=== PATIENT | male | born 1970 | race Caucasian/White ===

== ENCOUNTER 2018-03-23 10:50 | Inpatient (IN) | payer MEDICAID ==
--- NOTE | 2018-03-23 11:09 | EDPHY ---
H & P Stated Complaint: Fell, hit head, lac to left eyebrow. LOC. Source: Patient Exam Limitations: No limitations - Personal History Current Tetanus Diphtheria and Acellular Pertussis (TDAP): Yes - Medical/Surgical History Hx Asthma: No Hx Chronic Respiratory Disease: No Hx Diabetes: No Hx Cardiac Disease: No Hx Renal Disease: No Hx Cirrhosis: No Hx Alcoholism: No Hx HIV/AIDS: No Hx Splenectomy or Spleen Trauma: No Other PMH: htn. traumatic splenectomy - Social History Smoking Status: Current every day smoker Time Seen by Provider: 03/23/18 11:07 HPI/ROS: CHIEF COMPLAINT: Fall from ladder, facial laceration, decreased vision left eye HISTORY OF PRESENT ILLNESS: The patient is brought to the emergency department by a friend. He reportedly was painting a house and fell off a ladder approximately 20 ft in the air. The patient struck his head and sustained a laceration complicated in nature above his left eye. The patient reports decreased vision in his left eye. The patient denies any neck pain. The patient denies chest pain, abdominal pain or back pain. The patient does report drinking alcohol today. Patient does have a prior history of a significant traumatic injury resulting in a pneumothorax, multiple rib fractures and splenectomy. REVIEW OF SYSTEMS: A comprehensive 10 point review of systems is otherwise negative aside from elements mentioned in the history of present illness. (Arun Kramer) - Physical Exam Exam: General Appearance: Alert, alcohol on breath, no acute distress Head: Complex laceration noted over the left eye Eyes: Right pupil reactive, normal consensual response noted in the left pupil. Left pupil is unreactive. The patient reports he has no vision out of his left eye. No obvious hypopyon noted on exam. ENT, Mouth: No hemotympanum, no oral trauma Neck: In cervical collar Respiratory: No chest wall tender, subcutaneous air, lungs clear bilaterally Cardiovascular: Regular rate and rhythm Abdomen: Abdomen is soft and nontender, pelvis stable Skin: No lacerations, No abrasion Back: No midline T/L/S pain Extremities: Nontender, full range of motion Neurological: A&Ox3, normal motor function, normal sensory exam (Arun Kramer) Constitutional: Initial Vital Signs Heart Rate 90 03/23/18 10:55 Respiratory Rate 18 03/23/18 10:55 Blood Pressure 134/93 H 03/23/18 10:55 O2 Sat (%) 96 03/23/18 10:55 O2 Delivery Mode Room Air Allergies/Adverse Reactions: No Known Allergies Allergy (Unverified 01/19/18 13:49) Home Medications: Medication Instructions Recorded Hydrochlorothiazide [HCTZ (*)] 12.5 mg PO DAILY@1500 01/19/18 Ibuprofen [Motrin (*)] 200 - 400 mg PO DAILY PRN 01/19/18 Losartan Potassium [Cozaar 50 mg 50 mg PO BID 01/19/18 (*)] Acetaminophen [Tylenol 325mg (*)] 650 mg PO Q4HRS PRN tab 01/22/18 Amoxicillin/Clavulanate Pot 875 mg PO BID #28 tab 01/22/18 [Augmentin 875 MG TAB (*)] Doxycycline Hyclate [Vibramycin 100 mg PO BID #28 capsule 01/22/18 100 MG (*)] Nicotine [Nicoderm Cq 21 mg (*)] 21 mg TD DAILY patch 01/22/18 Thiamine HCl [Vitamin B-1] 100 mg PO DAILY tab 01/22/18 Medical Decision Making - Diagnostics Imaging Results: Imaging Impressions Cervical Spine CT 03/23/18 11:03 Impression: 1. No acute, displaced cervical spine fracture. 2. If the patient has persistent pain or neurologic deficits, consider cervical spine MRI. These findings were discussed with Mika Kramer in the emergency department at 12: 00 AM on 03/23/2018. Head CT 03/23/18 11:03 Impression: 1. Complex facial fractures involving the left zygomatic arch, orbital roof, left maxillary sinus and ethmoid air cells, as well as pterygoid process of the sphenoid bone extending to the region of the pterygopalatine fossa and optic canal. 2. Small amount left temporal extra-axial hemorrhage and pneumocephalus. 3. Longitudinal fracture of the right temporal bone. These findings were discussed with Mika Kramer in the emergency department at 12: 00 AM on 03/23/2018. Procedures: My involvement the care this patient is solely for procedure. Please see the note of the attending physician for all other aspects of care. PROCEDURE: Laceration repair Consent: Verbal Location: Left eyebrow Length of repair: 6 cm Complexity: Complex Layer involvement: 2 layer Anesthesia: Local. 0.5% Marcaine with epinephrine. 10 mL Irrigation: Extensive Debridement: 1 cm excisional debridement Procedure description: Following good anesthesia, the wound was copiously irrigated. Wound bed was explored with a sterile glove, and there is no foreign body noted. Perform 1 cm excisional debridement of nonviable tissue. Wound borders were approximated well with good hemostasis. Tolerated well without complication. Suture/Staple material: Subcutaneous layer: 5-0 Vicryl, 10 figure-eight sutures. Cutaneous layer: 6-0 Prolene, 9 simple ruptured sutures Wound care: Routine as discussed Suture/Staple removal: 7 Days (Pete Link) ED Course/Re-evaluation: The patient presents to the ED after a fall from ladder which resulted in a facial laceration and vision loss in his left eye. The patient has been drinking alcohol today. However he is neurologically intact aside from vision loss in his left eye. Patient was taken for stat CT scan of the head and cervical spine which demonstrate complex facial fractures but no evidence of an intracranial hemorrhage. The patient also has a temporal bone fracture. Consultation was made with Dr. Chappell from Ophthalmology who evaluated the patient in the emergency department. He appears to have a injury involving his optic nerve. Dr. Chappell recommends IV steroids and a Solu-Medrol Dosepak. The patient has been informed that he may be at a poor outcome given his extensive optic nerve injury. Consultation was made with ENT will see the patient regarding his facial fractures. I consulted with Dr. Darvin Nagy from General surgery who will admit the patient for observation this evening. The patient's facial laceration was repaired by the physician licensed investment sales assistant. I did consult with Dr. Paredes at 1:[address] Chappell will dictated formal consultation on the patient this afternoon. On repeat examination the patient did complain of bilateral wrist pain. The patient did undergo bilateral wrist x-rays which demonstrate no evidence of an obvious fracture by my interpretation. 2:15 p.m.: Patient is transferred to a medical-surgical floor bed for further observation. (Arun Kramer) Differential Diagnosis: Differential diagnosis considered includes intracranial hemorrhage, skull fracture, facial bone fracture, optic nerve injury (Arun Kramre) Critical Care Time: Critical care time exclusive of procedures and exclusive of the PA's time was 35 minutes, performed by myself, Arun Kramer MD. Patient presents to the ED with traumatic blindness from a high mechanism fall. The patient was seen in consultation by Ophthalmology as well as Trauma surgery. The patient will be admitted to the hospital for observation in the setting of his numerous facial bone fractures, alcohol intoxication and fall. (Arun Kramer) - Data Points Laboratory Results: Laboratory Results 03/23/18 11:15 03/23/18 11:15 03/23/18 03/23/18 03/23/18 11:15 11:15 11:15 WBC 8.20 10^3/uL 10^3/uL (3.80-9.50) RBC 4.39 10^6/uL L 10^6/uL (4.40-6.38) Hgb 15.7 g/dL g/dL (13.7-17.5) Hct 42.8 % % (40.0-51.0) MCV 97.5 fL fL (81.5-99.8) MCH 35.8 pg H pg (27.9-34.1) MCHC 36.7 g/dL g/dL (32.4-36.7) RDW 12.5 % % (11.5-15.2) Plt Count 298 10^3/uL 10^3/uL (150-400) MPV 8.8 fL fL (8.7-11.7) Neut % (Auto) 60.9 % % (39.3-74.2) Lymph % (Auto) 27.1 % % (15.0-45.0) [place] % (Auto) 9.8 % % (4.5-13.0) Eos % (Auto) 1.0 % % (0.6-7.6) Baso % (Auto) 1.0 % % (0.3-1.7) Nucleat RBC Rel Count 0.0 % % (0.0-0.2) Absolute Neuts (auto) 5.00 10^3/uL 10^3/uL (1.70-6.50) Absolute Lymphs (auto) 2.22 10^3/uL 10^3/uL (1.00-3.00) Absolute Monos (auto) 0.80 10^3/uL 10^3/uL (0.30-0.80) Absolute Eos (auto) 0.08 10^3/uL 10^3/uL (0.03-0.40) Absolute Basos (auto) 0.08 10^3/uL 10^3/uL (0.02-0.10) Absolute Nucleated RBC 0.00 10^3/uL 10^3/uL (0-0.01) Immature Gran % 0.2 % % (0.0-1.1) Immature Gran # 0.02 10^3/uL 10^3/uL (0.00-0.10) PT 13.1 SEC SEC (12.0-15.0) INR 0.97 (0.83-1.16) APTT 29.7 SEC SEC (23.0-38.0) Sodium 126 mEq/L L mEq/L (135-145) Potassium 4.1 mEq/L mEq/L (3.3-5.0) Chloride 85 mEq/L L mEq/L (97-110) Carbon Dioxide 23 mEq/l mEq/l (22-31) Anion Gap 18 mEq/L H mEq/L (6-14) BUN 6 mg/dL L mg/dL (7-23) Creatinine 0.6 mg/dL L mg/dL (0.7-1.3) Estimated GFR > 60 Glucose 106 mg/dL H mg/dL (70-100) Calcium 9.2 mg/dL mg/dL (8.5-10.4) Ethyl Alcohol 399 mg/dL H mg/dL (0-10) Departure - Departure Disposition: [facility] Inpatient Acute Clinical Impression: Traumatic blindness of left eye, Complex laceration of face, Facial bones, closed fracture, Alcohol intoxication Condition: Fair
[2018-03-23 11:27] LABS: PLATELET COUNT 298 10^3/uL (150-400)
[2018-03-23 11:39] LABS: INR 0.97 (0.83-1.16); PROTIME(PATIENT) 13.1 SEC (12.0-15.0)
[2018-03-23] MEDS ORDERED: FLUORESCEIN SODIUM 1 MG STRIP OP ONE (11:42)
[2018-03-23] MEDS ORDERED: PROPARACAINE 0.5% 15 ML OPHT DROP ONE (11:42)
[2018-03-23] MEDS ORDERED: DIAZEPAM 5 MG TAB PO PRN (13:23)
[2018-03-23] MEDS ORDERED: FLUMAZENIL 0.5 MG/5 ML MDV IVP PRN (13:23)
[2018-03-23] MEDS ORDERED: ACETAMINOPHEN 325 MG TAB PO PRN (13:23)
[2018-03-23] MEDS ORDERED: D5W 1/2 NS W/ 20 KCl/L 1,000 ML IV SCH (13:30)
--- NOTE | 2018-03-23 13:53 | PDGENHP ---
History and Physical - Chief Complaint fall from ladder - History of Present Illness 47yo male arrives to the [facility] ED as a limited trauma after sustaining an approximate 20 foot fall off a ladder. 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 He vaguely remembers falling and losing his balance but not much else. He recalls coming to and a bystander asking him how he felt. He was subsequently transferred here via ambulance. On arrival here and on my examination, he is protectiing his airway, is breathing appropriately and has adequate circulation. He c/o L head pain and eye pain, he is also disoriented as he cannot see anything out of the left eye. Other than the above, he has no complaints and is anxious about the loss of vision. History Information - Allergies/Home Medication List Allergies/Adverse Reactions: No Known Allergies Allergy (Unverified 01/19/18 13:49) Home Medications: Hydrochlorothiazide [HCTZ (*)] 12.5 mg PO DAILY@1500 01/19/18 [Last Taken ] Ibuprofen [Motrin (*)] 200 - 400 mg PO DAILY PRN 01/19/18 [Last Taken Unknown] Losartan Potassium [Cozaar 50 mg (*)] 50 mg PO BID 01/19/18 [Last Taken 01/19/18 ] I have personally reviewed and updated: family history, medical history, social history, surgical history - Past Medical History hypertension Additional medical history: Recent Hx of neck infection in December Tx c abx - Surgical History Additional surgical history: Traumatic splenectomy - Family History Positive for: non-pertinent - Social History Smoking Status: Current every day smoker Tobacco Use: Other (1 PPD) Alcohol Use: Heavy (8-10 beers/night, typically drinks throughout the day as well) Drug Use: None Additional social history: From [place], [place]. Review of Systems Review of Systems: ROS: 10pt was reviewed & negative except for what was stated in HPI & below Physical Exam Physical Exam: Temp Pulse Resp BP Pulse Ox 90 18 134/93 H 96 03/23/18 10:55 03/23/18 10:55 03/23/18 10:55 03/23/18 10:55 Constitutional: no apparent distress, appears nourished, not in pain Eyes: PERRL, anicteric sclera, EOMI, other (Left eye accomodates and has normal EOMI, no vision in L eye. 3cm laceration above L eye. Significant swelling and bruising of L eye as well ) Ears, Nose, Mouth, Throat: moist mucous membranes, hearing normal, ears appear normal, no oral mucosal ulcers Cardiovascular: regular rate and rhythym, no murmur, rub, or gallop, No edema Respiratory: no respiratory distress, no rales or rhonchi, clear to auscultation Gastrointestinal: normoactive bowel sounds, soft, non-tender abdomen, no palpable masses, other (well healed laparotomy scar c/w surgical Hx) Genitourinary: no bladder fullness, no bladder tenderness Skin: warm, normal color, no rashes or abrasions, no fluctuance, no induration, No mottled Musculoskeletal: full muscle strength, no muscle tenderness, normal joint ROM, no joint effusions Neurologic: AAOx3, sensation intact bilaterally, No weakness, No numbness, No facial droop Psychiatric: interacting appropriately, not encephalopathic, thought process linear, anxious Lymph, Heme, Immunologic: no cervical LAD, no supraclavicular LAD Lab Data & Imaging Review 03/23/18 11:15 03/23/18 11:15 WBC 8.20 10^3/uL (3.80-9.50) 03/23/18 11:15 RBC 4.39 10^6/uL (4.40-6.38) L 03/23/18 11:15 Hgb 15.7 g/dL (13.7-17.5) 03/23/18 11:15 Hct 42.8 % (40.0-51.0) 03/23/18 11:15 MCV 97.5 fL (81.5-99.8) 03/23/18 11:15 MCH 35.8 pg (27.9-34.1) H 03/23/18 11:15 MCHC 36.7 g/dL (32.4-36.7) 03/23/18 11:15 RDW 12.5 % (11.5-15.2) 03/23/18 11:15 Plt Count 298 10^3/uL (150-400) 03/23/18 11:15 MPV 8.8 fL (8.7-11.7) 03/23/18 11:15 Neut % (Auto) 60.9 % (39.3-74.2) 03/23/18 11:15 Lymph % (Auto) 27.1 % (15.0-45.0) 03/23/18 11:15 [place] % (Auto) 9.8 % (4.5-13.0) 03/23/18 11:15 Eos % (Auto) 1.0 % (0.6-7.6) 03/23/18 11:15 Baso % (Auto) 1.0 % (0.3-1.7) 03/23/18 11:15 Nucleat RBC Rel Count 0.0 % (0.0-0.2) 03/23/18 11:15 Absolute Neuts (auto) 5.00 10^3/uL (1.70-6.50) 03/23/18 11:15 Absolute Lymphs (auto) 2.22 10^3/uL (1.00-3.00) 03/23/18 11:15 Absolute Monos (auto) 0.80 10^3/uL (0.30-0.80) 03/23/18 11:15 Absolute Eos (auto) 0.08 10^3/uL (0.03-0.40) 03/23/18 11:15 Absolute Basos (auto) 0.08 10^3/uL (0.02-0.10) 03/23/18 11:15 Absolute Nucleated RBC 0.00 10^3/uL (0-0.01) 03/23/18 11:15 Immature Gran % 0.2 % (0.0-1.1) 03/23/18 11:15 Immature Gran # 0.02 10^3/uL (0.00-0.10) 03/23/18 11:15 PT 13.1 SEC (12.0-15.0) 03/23/18 11:15 INR 0.97 (0.83-1.16) 03/23/18 11:15 APTT 29.7 SEC (23.0-38.0) 03/23/18 11:15 Sodium 126 mEq/L (135-145) L 03/23/18 11:15 Potassium 4.1 mEq/L (3.3-5.0) 03/23/18 11:15 Chloride 85 mEq/L (97-110) L 03/23/18 11:15 Carbon Dioxide 23 mEq/l (22-31) 03/23/18 11:15 Anion Gap 18 mEq/L (6-14) H 03/23/18 11:15 BUN 6 mg/dL (7-23) L 03/23/18 11:15 Creatinine 0.6 mg/dL (0.7-1.3) L 03/23/18 11:15 Estimated GFR > 60 03/23/18 11:15 Glucose 106 mg/dL (70-100) H 03/23/18 11:15 Calcium 9.2 mg/dL (8.5-10.4) 03/23/18 11:15 Ethyl Alcohol 399 mg/dL (0-10) H 03/23/18 11:15 Visualized and Interpreted imaging results: Yes Interpretation: Ct Head: Complex fx involving L zygomatic arch, orbital roof, L maxilary sinus and ethmoid air cells, pterygoid process of sphenoid bone entending into pterygopalatine fossa and optic canal. Small amt of pneumocephalus. Longitudincal fx of R temporal bone. CT c-spine: no acute fx Assessment & Plan Assessment: Alcohol intoxication (Acute) Complex laceration of face (Acute) Facial bones, closed fracture (Acute) Traumatic blindness of left eye (Acute) Plan: 47yo M s/p mechanical fall c complex facial fx, L eye blindness, L orbital laceration. - Patient will be admitted to trauma service. - Evaluation from Ophthalmology has taken place in ED. Recs per them were that globe was intact and vision loss likely 2/2 optic nerve swelling. Will start Medrol dose aiden per their recommendations - ENT for facial fx, evaluation pending - CIWA: patient drinks >10 beers/day. Will start Ativan, may need Precedex if progresses. Will watch closely - HTN: resume home meds - Tobacco: path if needed, will hold until he requests - Abx for pneumocephalus
[2018-03-23] MEDS: IBUPROFEN 600 MG TAB PO SCH ×2 (14:28→21:05)
[2018-03-23] MEDS: oxyCODONE IR 5 MG TAB PO PRN ×3 (14:29→19:36)
--- NOTE | 2018-03-23 14:30 | EDV ---
CHIEF COMPLAINT/HPI: Patient is a 47-year-old white male who fell off a ladder while painting, strik ing the left side of his face. Now complains of severe visual loss, left eye with significant lacera tions on forehead and above left brow. PAST OCULAR HISTORY: Patient relates that he previously had good vision in both eyes. PAST MEDICAL HISTORY: Noncontributory. Visual acuity approximately 24/40 with near vision, right ey e. Left eye, no light perception. Attempted to startle patient with sudden movements and attract him to moving objects and light. He was unable to follow moving objects. Did not notice anything that w ould cause him distraction, and denied any ability to see light at all. PHYSICAL EXAMINATION: HEAD: He has a laceration above the left brow and on the left side of his for ehead with significant bruising. EYES: Lids, lacrimal system were all intact without trauma. Conjunctivae, he as a very small subconj unctival hemorrhage at the 5 o'clock position in the left eye. Right eye is clear. Corneas are kavon r. Anterior chamber deep and quiet. Lens are clear. Pupils, patient has normal shape and morpholog y. He has a 4+ relative afferent pupillary defect in the left eye. On undilated fundus exam, cup to discussion 0.3, both eyes. Vessels appear to be intact. Retina is flat. There is no apparent reti nal detachment. Pressures are soft to tactile measurement. Extraocular motility is full. 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 Imaging was obtained whi ch shows multiple facial fractures including into the apex of the orbit and palatine fossa. RECOMMENDATIONS: Case was discussed with attending ER physician, who recommended dosing of Solu-Medr ol and a 2-week course of steroids to try to decrease any swelling around the optic nerve if there is any visual potential, which is highly doubtful. We plan on seeing him as an outpatient in 2 weeks t o reassess his vision. /[id number]/MODL
[2018-03-23] MEDS: HYDROCHLOROTHIAZIDE 12.5 MG CAP PO SCH (14:57)
--- NOTE | 2018-03-23 17:11 | PDMN ---
Medical Necessity Medical necessity: Pt meets IP criteria per & [facility]ICA PG-MTR (Multiple Trauma); est los >2 mn for eval/tx of complex facial fx, L eye blindness & L orbital laceration s/p mechanical fall; admit for further monitoring, Ophthalmology consult w/Medrol dose aiden, ENT consult, IV abx, IVFs, CIWA protocol & therapies ; hx heavy alcohol use; per H&P & order 03/23/18
[2018-03-23] MEDS: AMPICILLIN/SULBACTAM 3 GM in NS 100 ML IV SCH (17:41)
[2018-03-23] MEDS: NICOTINE 21 MG/24 HR PATCH TD SCH (17:41)
[2018-03-23] MEDS: ONDANSETRON 4 MG/2 ML VIAL IVP PRN ×2 (17:44→21:32)
[2018-03-23] MEDS: LOSARTAN POTASSIUM 50 MG TAB PO SCH (21:04)
[2018-03-23] MEDS: BACITRACIN ZINC 14.2 GM OINTTUBE TP SCH (21:05)
[2018-03-23] MEDS: LORazepam 2 MG/ML INJ IVP PRN (22:16)
[2018-03-24] MEDS: AMPICILLIN/SULBACTAM 3 GM in NS 100 ML IV SCH ×4 (00:41→17:40)
[2018-03-24] MEDS: oxyCODONE IR 5 MG TAB PO PRN ×3 (06:29→18:35)
[2018-03-24] MEDS: IBUPROFEN 600 MG TAB PO SCH ×3 (06:29→21:26)
[2018-03-24] MEDS ORDERED: methylPREDNISolone 4 MG TAB PO SCH (07:30)
[2018-03-24] MEDS: ONDANSETRON 4 MG/2 ML VIAL IVP PRN ×2 (08:38→21:44)
[2018-03-24] MEDS ORDERED: BEER 1 EACH EA PO PRN (08:59)
--- NOTE | 2018-03-24 09:14 | TRAUMAPNT ---
Trauma Tertiary Progress Note - Problem/Surgery Performed (1) Tobacco use Assessment/Plan: discussed with patient/Nicoderm patch (21mg) removed as I am concerned it could further compromise intracerebral blood flow patient agrees. If withdrawal symptoms severe would restart at lower dose (7mg) (2) Alcohol intoxication Assessment/Plan: discussed EtOH withdrawal/he is not interested in quitting right now and has had withdrawal symptoms in the past when he has quit will continue CIWA protocol and offer Beer prn (3) Complex laceration of face Assessment/Plan: s/p repair, sutures out 5-7 days (4) Facial bones, closed fracture Assessment/Plan: multiple fractures including left zygomatic arch, left maxillary and sphenoid sinus, left sphenoid bone into pterygopalatine fossa-optic canal, pneumocephalus non-operative management per ENT/opthalmology continue steriods/symptomatic care Qualifiers: Encounter type: initial encounter Facial bone/location: zygomatic arch Laterality: left Qualified Code(s): S02.40FA - Zygomatic fracture, left side, initial encounter for closed fracture (5) Traumatic blindness of left eye Assessment/Plan: some light recognition today/prognosis guarded for recovery of sight OS Qualifiers: Encounter type: initial encounter Qualified Code(s): S05.92XA - Unspecified injury of left eye and orbit, initial encounter New Findings: lumbar pain-plain films pending, ongoing nausea/vomitting-repeat CT head to assess for delayed bleeding Assessment/Plan: s/p fall with CHI/multiple fractures and traumatic blindness lumbar pain with plain films ordered wrist pain L>R without acute fractures (old healed fracture left distal ulna) will continue observation and treat symptomatically Steroid taper per Dr. Chappell's recommendation IV Unasyn Patient lives alone and may require rehab/SNF vs. [facility] Subjective: complaining of nausea/emesis x 1 this AM no change in left eye visual loss Objective: Vital Signs Temp Pulse Resp BP Pulse Ox 36.7 C 66 12 139/80 H 93 03/24/18 07:26 03/24/18 07:26 03/24/18 07:26 03/24/18 07:26 03/24/18 03:30 Laboratory Results 03/24/18 08:20 03/23/18 03/24/18 03/25/18 05:59 05:59 05:59 Intake Total 1200 Output Total 145 Balance 1055 PT 13.1 SEC (12.0-15.0) 03/23/18 11:15 INR 0.97 (0.83-1.16) 03/23/18 11:15 - C-Spine Clearance Cervical Spine Cleared: Yes Provider who Cleared Cervical Spine: Carrington Physical Exam - Physical Exam General Appearance: WD/WN, mild distress EENT: other (left jonatan-orbital ecchymosis, conjunctival hemorrhage) Neck: non-tender, full range of motion, supple Respiratory: lungs clear, decreased breath sounds, crackles, pain on movement Cardiac/Chest: regular rate, rhythm Peripheral Pulses: 4+: dorsalis-pedis (R), dorsalis-pedis (L) Abdomen: non-tender, soft Male Genitalia: deferred Rectal: deferred Back: Other (tender para spinous lumbar region) Skin: warm/dry Extremities: other (tender left wrist/abrasions both knees) Neuro/Psych: no motor/sensory deficits, normal mood/affect, oriented x 3, other (OS visual loss/able to see dim light) Time Spent w/Patient (minutes): 20
--- NOTE | 2018-03-24 10:04 | PDGENHP ---
History and Physical - Chief Complaint Head and facial trauma - History of Present Illness Patient was examined on March 23, 2018. On March 23, 2018, he fell approximately 20 feet from a ladder. He states he had some previous right ear infection that he was taking ear drops for and thinks he may have been somewhat off balance because of this. He was admitted to the floor through the emergency department. He had a left brow laceration sutured in the ER. CT scan was obtained prior to his transfer to the floor. I reviewed both the images and radiology read and went over the results with the patient. I agree with the result of multiple nondisplaced facial fractures predominantly at the left. There is a para sphenoidal fracture that is concerning for impingement on the optic nerve at the left. Patient states that he has a headache, some facial pain, and some muffled hearing at the right. When he bites down, he feels his teeth come together normally. He denies epistaxis, nausea, vertigo. History Information - Allergies/Home Medication List Allergies/Adverse Reactions: No Known Allergies Allergy (Unverified 01/19/18 13:49) Home Medications: Hydrochlorothiazide [HCTZ (*)] 12.5 mg PO DAILY@1500 01/19/18 [Last Taken ] Ibuprofen [Motrin (*)] 200 - 400 mg PO DAILY PRN 01/19/18 [Last Taken Unknown] Losartan Potassium [Cozaar 50 mg (*)] 50 mg PO BID 01/19/18 [Last Taken 01/19/18 ] I have personally reviewed and updated: family history, medical history, social history, surgical history - Past Medical History hypertension Additional medical history: Recent Hx of neck infection in December Tx c abx - Surgical History Additional surgical history: Traumatic splenectomy - Family History Positive for: non-pertinent - Social History Smoking Status: Current every day smoker Tobacco Use: Other (1 PPD) Alcohol Use: Heavy (8-10 beers/night, typically drinks throughout the day as well) Drug Use: None Additional social history: From [place]. Review of Systems Review of Systems: ROS: 2-9 pt reviewed & negative except for what was stated in HPI & below Physical Exam Physical Exam: PHYSICAL EXAM: - GENERAL: Alert, interactive, mild distress. - HEAD and FACE: Normocephalic generally symmetric. No palpable step-offs of bony structures. - EYES: Significant/severe left periorbital ecchymoses with a 3 centimeter sutured laceration at the left brow. On elevating the upper lid the patient states he is able to identify shadows and outlines with his left eye. Right eye vision normal. - EARS: Left pinna and canal nontender and nonerythematous; no otorrhea; tympanic membrane intact; no effusion. Right pinna unremarkable; canal has dried blood; TM visible but covered with dried blood; no evidence of effusion or drainage. - NOSE: Normally formed/generally straight. Anterior rhinoscopy: Septum normal , generally straight. Turbinates without hypertrophy. Mucosa pink, moist. Minimal crusting. No polyps, purulence, bleeding. - ORAL CAVITY/ORAL PHARYNX: Age appropriate dentition. Normal occlusion. Oral mucosa without masses or lesions. Uvula midline. Normal tonsils/fossae. Posterior oropharynx clear. - NECK: Normal inspection. Trachea midline. Supple. No palpable masses or adenopathy. - NEURO: Cranial nerves II - XII grossly intact. - PSYCH: Appropriate mentation and mood. No pressured speech. Temp Pulse Resp BP Pulse Ox 36.7 C 66 12 139/80 H 93 03/24/18 07:26 03/24/18 07:26 03/24/18 07:26 03/24/18 07:26 03/24/18 03:30 Lab Data & Imaging Review 03/24/18 08:20 03/24/18 08:20 WBC 10.14 10^3/uL (3.80-9.50) H 03/24/18 08:20 RBC 4.23 10^6/uL (4.40-6.38) L 03/24/18 08:20 Hgb 15.1 g/dL (13.7-17.5) 03/24/18 08:20 Hct 40.7 % (40.0-51.0) 03/24/18 08:20 MCV 96.2 fL (81.5-99.8) 03/24/18 08:20 MCH 35.7 pg (27.9-34.1) H 03/24/18 08:20 MCHC 37.1 g/dL (32.4-36.7) H 03/24/18 08:20 RDW 11.9 % (11.5-15.2) 03/24/18 08:20 Plt Count 290 10^3/uL (150-400) 03/24/18 08:20 MPV 8.8 fL (8.7-11.7) 03/23/18 11:15 Neut % (Auto) 60.9 % (39.3-74.2) 03/23/18 11:15 Lymph % (Auto) 27.1 % (15.0-45.0) 03/23/18 11:15 [place] % (Auto) 9.8 % (4.5-13.0) 03/23/18 11:15 Eos % (Auto) 1.0 % (0.6-7.6) 03/23/18 11:15 Baso % (Auto) 1.0 % (0.3-1.7) 03/23/18 11:15 Nucleat RBC Rel Count 0.0 % (0.0-0.2) 03/23/18 11:15 Absolute Neuts (auto) 5.00 10^3/uL (1.70-6.50) 03/23/18 11:15 Absolute Lymphs (auto) 2.22 10^3/uL (1.00-3.00) 03/23/18 11:15 Absolute Monos (auto) 0.80 10^3/uL (0.30-0.80) 03/23/18 11:15 Absolute Eos (auto) 0.08 10^3/uL (0.03-0.40) 03/23/18 11:15 Absolute Basos (auto) 0.08 10^3/uL (0.02-0.10) 03/23/18 11:15 Absolute Nucleated RBC 0.00 10^3/uL (0-0.01) 03/23/18 11:15 Immature Gran % 0.2 % (0.0-1.1) 03/23/18 11:15 Immature Gran # 0.02 10^3/uL (0.00-0.10) 03/23/18 11:15 PT 13.1 SEC (12.0-15.0) 03/23/18 11:15 INR 0.97 (0.83-1.16) 03/23/18 11:15 APTT 29.7 SEC (23.0-38.0) 03/23/18 11:15 Sodium 123 mEq/L (135-145) L 03/24/18 08:20 Potassium 3.7 mEq/L (3.3-5.0) 03/24/18 08:20 Chloride 85 mEq/L (97-110) L 03/23/18 11:15 Carbon Dioxide 26 mEq/l (22-31) 03/24/18 08:20 Anion Gap 13 mEq/L (6-14) 03/24/18 08:20 BUN 3 mg/dL (7-23) L 03/24/18 08:20 Creatinine 0.5 mg/dL (0.7-1.3) L 03/24/18 08:20 Estimated GFR > 60 03/24/18 08:20 Glucose 102 mg/dL (70-100) H 03/24/18 08:20 Calcium 9.1 mg/dL (8.5-10.4) 03/24/18 08:20 Ethyl Alcohol 399 mg/dL (0-10) H 03/23/18 11:15 Assessment & Plan Assessment: Assessment: Alcohol intoxication (Acute) Complex laceration of face (Acute) Facial bones, closed fracture (Acute) Tobacco use (Acute) Traumatic blindness of left eye (Acute) Blood in right ear canal Plan: Plan: Given a lack of palpable step-offs and largely nondisplaced fractures on CT, he would not be appropriate for operative repair of his facial fractures. Soft diet and advance as tolerated. No nose blowing for 7 days. The left parasphenoidal/optic canal fracture does not appear to currently impinge on his optic nerve. I would agree with Ophthalmology that I would manage this non operatively with steroids. Please refer to ophthalmology recommendations for this and follow-up. It is encouraging that he does have some vision at the left. For the brow laceration, I would recommend bacitracin b.i.d.. He can return to the ER to remove sutures in 7-10 days. The blood in the right ear canal can be treated with b.i.d. Ciprodex drops. Apparently he had a recent right ear infection at home with a tympanic membrane rupture that was currently being treated with antibiotic ear drops. I recommend he continue these for another 7 days and follow up with our ball warper tender in 6 weeks to see if the temporal bone fracture has affected his hearing. He can arrange for the audiogram by calling our office at . Please call me on my cell phone if you have any questions: [phone].
[2018-03-24] MEDS: MULTIVITAMINS 1 EACH TAB PO SCH (10:08)
[2018-03-24] MEDS: THIAMINE HCL 500 MG in NS 100 ML IV SCH (10:08)
[2018-03-24] MEDS: LOSARTAN POTASSIUM 50 MG TAB PO SCH ×2 (10:08→21:26)
[2018-03-24] MEDS: NS 1,000 ML IV SCH (10:08)
[2018-03-24] MEDS: BACITRACIN ZINC 14.2 GM OINTTUBE TP SCH ×2 (10:10→21:25)
[2018-03-24] MEDS: NICOTINE 21 MG/24 HR PATCH TD SCH (11:30)
[2018-03-24] MEDS ORDERED: LORazepam 2 MG/ML INJ IVP PRN (12:13)
--- NOTE | 2018-03-24 13:01 | ASMTCMCOM ---
CM Note CM Note Notes: Pt was admitted with facial fx and optic nerve injury after a fall 20 feet off a ladder. A facial laceration has been repaired. Etoh was involved and pt reported heavy etoh use daily. He is not interested in quitting at this time. Ophthalmology and trauma are following. Anticipate d/c with no CM needs when medically cleared but will continue to follow for any change in needs. D/C plan: Anticipate d/c independent Date Signed: 03/24/2018 01:00 PM Electronically Signed By:GATO Oseguera
[2018-03-24] MEDS: methylPREDNISolone 4 MG TAB PO SCH ×3 (13:02→21:26)
[2018-03-24] MEDS: PROMETHAZINE HCL 25 MG/ML INJ IVP PRN (13:02)
[2018-03-24] MEDS: CIPROFLOXACIN HCL/DEXAMETH 7.5 ML OTIC DROPS RTEAR SCH ×2 (13:45→21:29)
[2018-03-24] MEDS: HYDROCHLOROTHIAZIDE 12.5 MG CAP PO SCH (14:37)
[2018-03-24] MEDS: LORazepam 2 MG/ML INJ IVP PRN ×2 (14:40→18:40)
--- NOTE | 2018-03-24 15:53 | SOAPPROG ---
Downtime Inpatient MD Late Entry SOAP Note: repeat CT reviewed/no evidence of intracranial hemorrhage/increased blood sphenoid sinus lumbar spine films/CXR pending
[2018-03-25] MEDS: AMPICILLIN/SULBACTAM 3 GM in NS 100 ML IV SCH ×4 (00:33→18:11)
[2018-03-25] MEDS: IBUPROFEN 600 MG TAB PO SCH ×3 (06:20→21:01)
[2018-03-25] MEDS: oxyCODONE IR 5 MG TAB PO PRN ×3 (06:23→21:00)
[2018-03-25] MEDS ORDERED: methylPREDNISolone 4 MG TAB PO SCH (07:30)
[2018-03-25] MEDS: LORazepam 2 MG/ML INJ IVP PRN (08:00)
--- NOTE | 2018-03-25 09:16 | TRAUMAPN ---
Trauma Progress Note Assessment/Plan: 47yo M s/p 20ft fall c extensive facial fx, L traumatic optic neuropathy, L eye lac - events over last 24hrs reviewed. His nausea is better today and his Na is improving - reviewed repeat CT head which was WNL - he feels hungry today, will see how he does with clears - can see some bright lights "flicker" today, which is an improvement. Subjective: nausea better Objective: Vital Signs Temp Pulse Resp BP Pulse Ox 36.8 C 66 12 119/82 H 95 03/25/18 07:25 03/25/18 07:25 03/25/18 07:25 03/25/18 07:25 03/25/18 07:25 Laboratory Results 03/24/18 08:20 03/25/18 04:48 03/24/18 03/25/18 03/26/18 05:59 05:59 05:59 Intake Total 1200 1200 Output Total 145 1975 Balance 1055 -775 PT 13.1 SEC (12.0-15.0) 03/23/18 11:15 INR 0.97 (0.83-1.16) 03/23/18 11:15 - C-Spine Clearance Cervical Spine Cleared: Yes Provider who Cleared Cervical Spine: Carrington
[2018-03-25] MEDS: LOSARTAN POTASSIUM 50 MG TAB PO SCH ×2 (10:15→21:00)
[2018-03-25] MEDS: THIAMINE HCL 500 MG in NS 100 ML IV SCH (10:33)
[2018-03-25] MEDS: MULTIVITAMINS 1 EACH TAB PO SCH (10:33)
[2018-03-25] MEDS: BACITRACIN ZINC 14.2 GM OINTTUBE TP SCH ×2 (10:34→21:03)
[2018-03-25] MEDS: CIPROFLOXACIN HCL/DEXAMETH 7.5 ML OTIC DROPS RTEAR SCH ×2 (10:34→21:03)
[2018-03-25] MEDS: methylPREDNISolone 4 MG TAB PO SCH ×3 (13:06→21:00)
[2018-03-25] MEDS: PROMETHAZINE HCL 25 MG/ML INJ IVP PRN (13:06)
[2018-03-25] MEDS: HYDROCHLOROTHIAZIDE 12.5 MG CAP PO SCH (15:53)
[2018-03-25] MEDS: ONDANSETRON 4 MG/2 ML VIAL IVP PRN (20:59)
[2018-03-26] MEDS: AMPICILLIN/SULBACTAM 3 GM in NS 100 ML IV SCH ×5 (01:05→23:45)
[2018-03-26] MEDS: IBUPROFEN 600 MG TAB PO SCH ×3 (06:25→21:05)
[2018-03-26] MEDS: oxyCODONE IR 5 MG TAB PO PRN ×4 (06:29→22:31)
[2018-03-26] MEDS: methylPREDNISolone 4 MG TAB PO SCH ×4 (06:29→21:06)
[2018-03-26] MEDS: THIAMINE HCL 500 MG in NS 100 ML IV SCH (09:26)
[2018-03-26] MEDS: MULTIVITAMINS 1 EACH TAB PO SCH (09:26)
[2018-03-26] MEDS: LOSARTAN POTASSIUM 50 MG TAB PO SCH ×2 (09:26→21:05)
--- NOTE | 2018-03-26 09:26 | TRAUMAPN ---
Trauma Progress Note Assessment/Plan: 47yo M s/p 20ft fall c extensive facial fx, L traumatic optic neuropathy, L eye lac. - repeat CT head was WNL - nausea from yesterday improved. tolerating diet. - can see some bright lights "flicker" yesterday and now able to see some colors , which is an improvement. Continue steroids. - getting ciprodex gtts for blood in ear canal and possible previous ear infection. - bacitracin to eye lac. - facial fractures nonoperative - appreciate ENT and ophtho input. Dispo: pending. S: no new areas of pain. nausea is better. seeing some light and colors in left eye now--finds it annoying sometimes and will cover that eye. O: alert, nad +L periorbital swelling and ecchymosis. able to open eye. can make out colors on bedside vital sign monitor. small subconjunctival hemorrhage no wob, no chest wall tenderness rrr abd soft, nt ext wwp, palpable pedal pulses. Objective: Vital Signs Temp Pulse Resp BP Pulse Ox 36.8 C 84 16 143/96 H 92 03/26/18 08:00 03/26/18 08:00 03/26/18 08:00 03/26/18 08:00 03/26/18 08:00 Laboratory Results 03/24/18 08:20 03/26/18 04:45 03/25/18 03/26/18 03/27/18 05:59 05:59 05:59 Intake Total 1200 Output Total 7599 579 201 Balance -024 -254 -958 PT 13.1 SEC (12.0-15.0) 03/23/18 11:15 INR 0.97 (0.83-1.16) 03/23/18 11:15 - C-Spine Clearance Cervical Spine Cleared: Yes Provider who Cleared Cervical Spine: Carrington
[2018-03-26] MEDS: ONDANSETRON 4 MG/2 ML VIAL IVP PRN (09:27)
[2018-03-26] MEDS: CIPROFLOXACIN HCL/DEXAMETH 7.5 ML OTIC DROPS RTEAR SCH ×2 (09:36→21:04)
[2018-03-26] MEDS: BACITRACIN ZINC 14.2 GM OINTTUBE TP SCH ×2 (09:36→21:04)
[2018-03-26] MEDS: NICOTINE 14 MG/24 HR PATCH TD SCH (13:11)
[2018-03-26] MEDS ORDERED: THIAMINE HCL 100 MG TAB PO SCH (13:23)
[2018-03-26] MEDS: HYDROCHLOROTHIAZIDE 12.5 MG CAP PO SCH (16:41)
[2018-03-26] MEDS: PROMETHAZINE HCL 25 MG/ML INJ IVP PRN (22:34)
[2018-03-26] MEDS: NS 1,000 ML IV SCH (23:48)
[2018-03-27] MEDS: oxyCODONE IR 5 MG TAB PO PRN ×4 (03:03→17:42)
[2018-03-27] MEDS: IBUPROFEN 600 MG TAB PO SCH ×3 (05:19→21:42)
[2018-03-27] MEDS: AMPICILLIN/SULBACTAM 3 GM in NS 100 ML IV SCH ×2 (05:20→12:29)
[2018-03-27] MEDS: THIAMINE HCL 100 MG TAB PO SCH (08:07)
[2018-03-27] MEDS: LOSARTAN POTASSIUM 50 MG TAB PO SCH ×2 (08:07→21:42)
[2018-03-27] MEDS: MULTIVITAMINS 1 EACH TAB PO SCH (08:07)
[2018-03-27] MEDS: methylPREDNISolone 4 MG TAB PO SCH ×2 (08:07→21:42)
[2018-03-27] MEDS: NICOTINE 14 MG/24 HR PATCH TD SCH (08:15)
[2018-03-27] MEDS: CIPROFLOXACIN HCL/DEXAMETH 7.5 ML OTIC DROPS RTEAR SCH ×2 (08:18→21:43)
[2018-03-27] MEDS: BACITRACIN ZINC 14.2 GM OINTTUBE TP SCH ×2 (08:20→21:44)
[2018-03-27] MEDS ORDERED: CARBOXYMETHYLCELLULOSE 0.5% 0.4 ML DROPERETTE EACHEYE PRN (09:43)
--- NOTE | 2018-03-27 09:46 | TRAUMAPN ---
Trauma Progress Note Assessment/Plan: 47yo M s/p 20ft fall c extensive facial fx, L traumatic optic neuropathy, L eye lac. - repeat CT head was WNL - Tolerating regular diet - L eye - vision improving. Continue steroids. - Pneumocephalus - IV Unasyn, dc today - Ear infection prior to admission - Ciprodex gtts - Suture removal tomorrow - bacitracin to eye lac. - Facial fractures nonoperative - appreciate ENT and ophtho input. - lubricating eye drops prn Dispo: pending PT/OT recs. Would benefit from rehab/SNF. Likely DC today or tomorrow. Seen with Dr. Garcia. S: not sleeping well. no new areas of pain. nausea improving. pain in both wrists. seeing some light and colors in left eye now-no change since yesterday O: walking around room, comfortable, NAD, friend Fredrick in room L eyebrow lac stitches in place, no e/o infection +L periorbital swelling and ecchymosis. able to open eye. small subconjunctival hemorrhage CTAB, no increased wob, no chest wall tenderness RRR +BS, abd soft, nt Objective: Vital Signs Temp Pulse Resp BP Pulse Ox 36.5 C 61 14 181/104 H 91 L 03/27/18 08:00 03/27/18 08:00 03/27/18 08:00 03/27/18 08:00 03/27/18 08:00 Laboratory Results 03/24/18 08:20 03/27/18 04:37 03/26/18 03/27/18 03/28/18 05:59 05:59 05:59 Intake Total 2987 Output Total 825 3400 700 Balance -825 -413 -700 PT 13.1 SEC (12.0-15.0) 03/23/18 11:15 INR 0.97 (0.83-1.16) 03/23/18 11:15 - C-Spine Clearance Cervical Spine Cleared: Yes Provider who Cleared Cervical Spine: Carrington
[2018-03-27] MEDS ORDERED: LORazepam 1 MG TAB PO PRN (09:49)
--- NOTE | 2018-03-27 11:56 | ASMTCMCOM ---
CM Note CM Note Notes: CM spoke to REJI Wakefield regarding d/c POC. Basilia is hoping that pt can get into either inpatient rehab or SNF. Therapies will continue to work w/ pt and assess. A rehab consulted has been put in on 03/23/18. CM spoke to Lashell Marshall w/ inpatient rehab. Lashell reports that his active drinking alone will disqualify him for inpatient care. She is also thinking that he looks good and could possibly do outpatient therapies. CM communicated this w/ Basilia. CM to follow. Plan: TBD Date Signed: 03/27/2018 11:56 AM Electronically Signed By:SARAH Sandoval
[2018-03-27] MEDS ORDERED: methylPREDNISolone 4 MG TAB PO SCH (12:30)
[2018-03-27] MEDS: HYDROCHLOROTHIAZIDE 12.5 MG CAP PO SCH (15:00)
--- NOTE | 2018-03-27 16:43 | ASMTCMCOM ---
CM Note CM Note Notes: CM spoke to ERIN Freedman regarding d/c POC. SPL and therapies have cleared pt for outpatient rehab. CM spoke to Lashell Marshall. Lashell is unable to accept at this time. CM met w/ pt for dispo planning. Pt reports that he is not interested in stopping his ETOH at this time. Pt reports that he has a friend he can stay w/ in [place]. Pt also has another good friend in [place]. Pt is agreeable to outpatient rehab. CAGE completed. Pt is being discharged today. REJI Wakefield will complete the outpatient rehab prescription. CM available for changes. Plan: Independent Date Signed: 03/27/2018 04:42 PM Electronically Signed By:SARAH Sandoval
--- NOTE | 2018-03-27 16:46 | ASMTLACE ---
LACE Length of stay for Answers: 4-6 days current admission Acuity / Level of Answers: Yes Care: Did the patient have an inpatient admission? # of Emergency department Answers: 1-2 visits in the last 6 months Social determinants Answers: History of substance abuse (ETOH, street drugs, prescription drugs, etc.) Score: 11 Date Signed: 03/27/2018 04:44 PM Electronically Signed By:SARAH Sandoval
--- NOTE | 2018-03-28 04:59 | GDS ---
ADMITTING DIAGNOSIS: Fall from 20+ feet. SECONDARY DIAGNOSES: Acute alcohol intoxication, multiple complex facial fractures, left eyebrow lac eration, hypertension, traumatic blindness, tobacco dependence, right ear infection prior to admissio n. REASON FOR ADMISSION: The patient is a 47-year-old man who fell approximately 20 feet with loss of c onsciousness. He presented to the emergency room for further workup, pain control, observation. HOSPITAL COURSE: In the emergency room, he had a cervical CT performed which was negative for any ac [place] injuries. A left eyebrow laceration was primarily repaired. A head CT performed showed complex facial fractures of the left zygomatic arch, orbital roof, left maxillary sinus and ethmoid air cells , pterygoid process and sphenoid extending to the region of the pterygopalatine fossa and optic canal . It also revealed small amount of left temporal extra-axial hemorrhage and pneumocephalus. Finally , a longitudinal fracture of the right temporal bone. He was evaluated by Ophthalmology who recommen ded nonoperative management, a Medrol steroid taper, and follow up in 2 weeks for re-evaluation of hi s vision. He had bilateral wrist x-rays performed which were negative for any acute injuries. He wa s admitted to the trauma service and placed on IV Unasyn for pneumocephalus and CIWA protocol for acu te alcohol intoxication. On 03/24/2018, a chest x-ray was performed which was negative. L-spine x-r ay performed which showed moderate degenerative joint disease and no evidence of compression fracture s or other acute injuries. A head CT was performed that showed no new areas of hemorrhage, minimal p neumocephalus, unchanged left facial bone fractures and swelling over the left orbit and blood in the maxillary and sphenoid sinuses. On 03/24/2018, he was evaluated by ENT who recommended nonoperative management of these facial fractures, and recommended follow up with an tree driller in 6 weeks to de termine if the temporal bone fracture has affected his hearing. Also, recommended continue Ciprodex drops for right ear infection prior to admission to continue for 1 week. Through the course of his hospital stay, he had some improvement of his left vision. At the time of discharge, is able to make out colors and lights which is improvement compared to the time of admissi on. He worked with Physical Therapy, Occupational Therapy, and Speech/Cognitive through his hospital course, who cleared him for discharge on 03/27/2018. His pain is controlled. He is tolerating regu lar diet. He is ambulating independently. DISCHARGE CONDITION: He is being discharged home in stable condition. His pain is controlled. He i s tolerating regular diet and ambulating independently. DISCHARGE MEDICATIONS: Sent home with prescriptions for Tylenol, bacitracin, Refresh eyedrops, Cipro dex ear drops, ibuprofen, Medrol. Continue multivitamin. Prescription for oxycodone IR. Instructed to resume home hydrochlorothiazide and Cozaar. Please see EMR for further detail. DISCHARGE INSTRUCTIONS AND FOLLOWUP: He will complete a 2-week steroid course per Ophthalmology. In structions are detailed in the discharge instructions. He will follow up with Ophthalmology in 2 wee ks for re-evaluation of his vision. Per ENT, no nose blowing x7 days until 03/30/2018. Follow up with TONO Wakefield of the trauma service on 04/02/2018, for suture removal. Continue Ciprodex x7 days per ENT. Followup audiology in 6 weeks. Call [phone] to make an appointment. Follow up as an outpatient with Physical Therapy, Occupational Therapy, and Speech/Cog. Referral pro vided in chart. /[id number]/MODL
[2018-03-28] MEDS: IBUPROFEN 600 MG TAB PO SCH (08:24)
[2018-03-28] MEDS: NICOTINE 14 MG/24 HR PATCH TD SCH (08:24)
[2018-03-28 08:25] VITALS: BP 164/106
[2018-03-28] MEDS: methylPREDNISolone 4 MG TAB PO SCH (08:25)
[2018-03-28] MEDS: BACITRACIN ZINC 14.2 GM OINTTUBE TP SCH (08:25)
[2018-03-28] MEDS: CIPROFLOXACIN HCL/DEXAMETH 7.5 ML OTIC DROPS RTEAR SCH (08:26)
[2018-03-28] MEDS: THIAMINE HCL 100 MG TAB PO SCH (08:27)
[2018-03-28] MEDS: LOSARTAN POTASSIUM 50 MG TAB PO SCH (08:27)
[2018-03-28] MEDS: oxyCODONE IR 5 MG TAB PO PRN (08:27)
[2018-03-28] MEDS: MULTIVITAMINS 1 EACH TAB PO SCH (08:27)
[2018-03-28] MEDS ORDERED: ACETAMINOPHEN 325 MG TAB PO PRN (09:56)
[2018-03-28] MEDS ORDERED: DIAZEPAM 5 MG TAB PO PRN (09:56)
[2018-03-28] MEDS ORDERED: FLUMAZENIL 0.5 MG/5 ML MDV IVP PRN (09:57)
[2018-03-28] MEDS ORDERED: oxyCODONE IR 5 MG TAB PO PRN (09:59)
[2018-03-28] MEDS ORDERED: LORazepam 2 MG/ML INJ IVP PRN (09:59)
[2018-03-28] MEDS ORDERED: ONDANSETRON 4 MG/2 ML VIAL IVP PRN (10:00)
--- NOTE | 2018-03-28 12:27 | TRAUMAPN ---
Trauma Progress Note - Problem/Surgery Performed (1) Tobacco use Assessment/Plan: currently using a 14 mg/hr patch will discontinue within next week (2) Alcohol intoxication Assessment/Plan: Jameson has had no acute withdrawal symptoms and plans on quitting soon Qualifiers: Complication of substance-induced condition: uncomplicated Qualified Code(s ): F10.920 - Alcohol use, unspecified with intoxication, uncomplicated (3) Complex laceration of face Assessment/Plan: sutures out today/wound healing nicely Qualifiers: Encounter type: initial encounter Qualified Code(s): S01.91XA - Laceration without foreign body of unspecified part of head, initial encounter (4) Facial bones, closed fracture Assessment/Plan: multiple fractures including left zygomatic arch, left maxillary and sphenoid sinus, left sphenoid bone into pterygopalatine fossa-optic canal, pneumocephalus non-operative management per ENT/opthalmology continue steriods/symptomatic care FU Dr. Paredes 2 weeks/audiometry Qualifiers: Encounter type: initial encounter Facial bone/location: zygomatic arch Laterality: left Qualified Code(s): S02.40FA - Zygomatic fracture, left side, initial encounter for closed fracture (5) Traumatic blindness of left eye Assessment/Plan: some light recognition today/prognosis guarded for recovery of sight OS Qualifiers: Encounter type: initial encounter Qualified Code(s): S05.92XA - Unspecified injury of left eye and orbit, initial encounter Assessment/Plan: clinically stable for discharge today/see dictated discharge summary by Adelita Cantu PA-C for details FU outpatient with Dr. Chappell and Dr. Paredes avoidance of head injury recommended Objective: Vital Signs Temp Pulse Resp BP Pulse Ox 36.7 C 75 14 164/106 H 96 03/28/18 08:00 03/28/18 08:00 03/28/18 08:00 03/28/18 08:27 03/28/18 08:00 Laboratory Results 03/24/18 08:20 03/27/18 04:37 03/27/18 03/28/18 03/29/18 05:59 05:59 05:59 Intake Total 2987 200 Output Total 3400 700 Balance -413 -500 PT 13.1 SEC (12.0-15.0) 03/23/18 11:15 INR 0.97 (0.83-1.16) 03/23/18 11:15 - C-Spine Clearance Cervical Spine Cleared: Yes Provider who Cleared Cervical Spine: Carrington Physical Exam - Physical Exam General Appearance: alert, mild distress EENT: other (left brow sutures removed) Respiratory: chest non-tender, lungs clear Cardiac/Chest: regular rate, rhythm Abdomen: non-tender, soft Time Spent w/Patient (minutes): 20
[2018-03-28] MEDS ORDERED: IBUPROFEN 600 MG TAB PO SCH (14:00)
[2018-03-28] MEDS ORDERED: BACITRACIN ZINC 14.2 GM OINTTUBE TP SCH (21:00)
[2018-03-29] MEDS ORDERED: MULTIVITAMINS 1 EACH TAB PO SCH (09:00)
== END 2018-03-28 14:31 | disposition home or self-care (01) | DRG 82 ==
LOC: OBSVTOIN 13:26 → F3E 14:16
PROVIDERS: ADMIT Surgery; ATTEND Surgery
PROC: 0HB1XZZ Excision of Face Skin, External Approach (ICD-10-PCS; principal; 2018-03-23)
PROC: 0JQ13ZZ Repair Face Subcutaneous Tissue and Fascia, Percutaneous Approach (ICD-10-PCS; principal; 2018-03-23)
DX: S01.112A Laceration without foreign body of left eyelid and periocular area, initial encounter (principal); S02.40FA Zygomatic fracture, left side, initial encounter for closed fracture; S02.19XA Other fracture of base of skull, initial encounter for closed fracture; S02.40DA Maxillary fracture, left side, initial encounter for closed fracture; S04.012A Injury of optic nerve, left eye, initial encounter; H54.61 Unqualified visual loss, right eye, normal vision left eye; W11.XXXA Fall on and from ladder, initial encounter; Y93.H9 Activity, other involving exterior property and land maintenance, building and construction; Y99.0 Civilian activity done for income or pay; F10.129 Alcohol abuse with intoxication, unspecified; H66.92 Otitis media, unspecified, left ear; I10 Essential (primary) hypertension; F17.210 Nicotine dependence, cigarettes, uncomplicated; Z87.81 Personal history of (healed) traumatic fracture; Z23 Encounter for immunization
CPT/HCPCS: 92507-GN; 92523-GN; 97116-GP; 97161-GP; 97165-GO; 97530-GP; 97535-GO; G0008; G0480; J0295; J2060; J2405; J2550; J3411